=== PATIENT | male | born 1965 | race African-American/Black ===

== ENCOUNTER 2016-11-12 06:42 | Day surgery (SDC) | payer BC, OTHER ==
[2016-11-08 15:44] VITALS: BMI 37.6
[2016-11-12] MEDS ORDERED: LIDOCAINE HCL/PF 2% SDV 5ML VIAL ONE (07:38)
[2016-11-12] MEDS ORDERED: ROCURONIUM BROMIDE 50 MG/5 ML VIAL ONE ×2 (07:39→08:53)
[2016-11-12] MEDS ORDERED: PROPOFOL 20 ML ONE ×2 (07:39)
[2016-11-12] MEDS ORDERED: MIDAZOLAM HCL 2 MG/2 ML SINGLE DOSE VIAL ONE (07:39)
[2016-11-12] MEDS ORDERED: BUPIVACAINE HCL/PF 0.25% (2.5MG/ML) 10 ML VIAL ONE (07:54)
[2016-11-12] MEDS ORDERED: POLYMYXIN B SULFATE 500,000 UNIT VIAL TP ONE (08:15)
[2016-11-12] MEDS ORDERED: ceFAZolin SODIUM 1 GM VIAL IVPB ONE (08:24)
[2016-11-12] MEDS ORDERED: ceFAZolin SODIUM 1 GM VIAL ONE (08:29)
[2016-11-12] MEDS ORDERED: DEXAMETHASONE SOD PHOSPHATE 4 MG/1 ML VIAL ONE (08:29)
[2016-11-12] MEDS ORDERED: oxyCODONE HCL 5 MG TABLET PO PRN (09:16)
[2016-11-12] MEDS ORDERED: ONDANSETRON 4 MG/2 ML VIAL IVPUSH PRN (09:16)
[2016-11-12] MEDS ORDERED: HYDROmorphone HCL CARPU-JECT 1 MG/1 ML DISP.SYRIN IVPUSH PRN (09:16)
[2016-11-12] MEDS ORDERED: IBUPROFEN 800 MG/8 ML IJ IVPB PRN (09:16)
[2016-11-12] MEDS ORDERED: ACETAMINOPHEN 1000 MG/100 ML VIAL (NON FORMULARY) IVPB PRN (09:18)
[2016-11-12] MEDS ORDERED: NEOSTIGMINE METHYLSULFATE 0.5 MG/ML - 10 ML MDV ONE (09:27)
[2016-11-12] MEDS ORDERED: GLYCOPYRROLATE 0.2 MG/1 ML VIAL ONE (09:27)
[2016-11-12] MEDS ORDERED: LACTATED RINGERS SOLUTION 1,000 ML IV SCH (09:30)
[2016-11-12] MEDS ORDERED: PHENYLEPHRINE HCL 10 MG/1 ML SINGLE DOSE VIAL ONE (09:37)
[2016-11-12] MEDS ORDERED: BUPIVACAINE HCL/PF 0.25% (2.5MG/ML) 10 ML VIAL IJ ONE (10:20)
--- NOTE | 2016-11-12 10:39 | OP ---
Operative Note - Note: Operative Date: 11/12/16 Pre-Operative Diagnosis: Morbid obesity Operation: Laparoscopic gastric band placement Implants: AP standerd Lap Band Post-Operative Diagnosis: Same as Pre-op Surgeon: Jay Lu Child Care Attendant School: [employer] Anesthesia: General Specimens Removed: None Estimated Blood Loss (mls): 50 Operative Report Dictated: Yes
[2016-11-12] MEDS ORDERED: ONDANSETRON 4 MG/2 ML VIAL IVPB PRN (10:42)
[2016-11-12] MEDS ORDERED: HYDROmorphone HCL CARPU-JECT 1 MG/1 ML DISP.SYRIN IVPB PRN (10:42)
--- NOTE | 2016-11-12 10:42 | HP ---
[facility] - Chief Complaint Chief Complaint: Morbid Obesity History Source: Patient Limitations to Obtaining History: No Limitations - Past Medical History Allergies/Adverse Reactions: Allergies Allergy/AdvReac Type Severity Reaction Status Date / Time No Known Drug Allergies Allergy Verified 11/08/16 16:06 Cardiovascular: Yes: HTN Pulmonary: Yes: Sleep Apnea Endocrine: Yes: Diabetes Mellitus - Current Medications Current Medications: Home Medications Medication Instructions Recorded Canagliflozin [Invokana] 300 mg PO DAILY 11/08/16 Insulin (Novolog) [Novolog] 8 - 12 units SQ AC 11/08/16 Insulin Degludec [Tresiba 100 unit SQ HS 11/08/16 Flextouch U-100] Thurston-3 Fatty Acids [Fish Oil] 300 mg PO DAILY 11/08/16 Sitagliptin Phos/Metformin HCl 1 each PO BID 11/08/16 [Janumet 50-1,000 mg Tablet] Valsartan/Hydrochlorothiazide 1 each PO DAILY 11/08/16 [Valsartan-Hctz 160-12.5 mg Tab] Vitamin B Complex 1 each PO DAILY 11/08/16 Vitamin E (Dl,Tocopheryl Acet) 400 unit PO DAILY 11/08/16 [Vitamin E] Famotidine [Pepcid] 20 mg PO BID #60 tablet 11/12/16 Oxycodone HCl/Acetaminophen 1 - 2 tab PO Q6H #28 tab MDD 4 11/12/16 [Percocet 5-325 mg Tablet] [facility]ellite Physical Exam - Physical Examination Vital Signs: Vital Signs Period Temp Pulse Resp BP Sys/Lal Pulse Ox Last 24 Hr 97.8 F 84 20 164/80 97 General Appearance: Well Nourished Lung: Clear to auscultation Heart: Regular rate & rhythm Abdomen: Soft, Other (Obese) Neurological: Alert, Oriented [facility]ellite Impression/Plan - Impression/Plan Impression: Morbid obesity Operative Procedure: Laparoscopic Gastric Band Placement Possible Open Date to be Performed: 11/12/16
[2016-11-12] MEDS ORDERED: SODIUM CHLORIDE 1,000 ML IV SCH (10:45)
[2016-11-12] MEDS ORDERED: ACETAMINOPHEN INJECTION 100 ML IVPB ONE (11:24)
[2016-11-12 11:26] LABS: MCH 25.1 pg (25.7-33.7); MCHC 31.1 g/dl (32.0-35.9); MEAN CELL VOLUME 80.6 fl (80-96); MEAN PLT VOLUME 7.9 fl (7.5-11.1); PLATELET COUNT 226 K/MM3 (134-434); RDW 16.9 % (11.9-15.9); WHITE BLOOD COUNT 16.5 K/mm3 (4.0-10.0)
[2016-11-12] MEDS ORDERED: FAMOTIDINE 20 MG/50 ML IVPB 50 ML IVPB SCH (11:45)
[2016-11-12 11:47] LABS: CALCIUM 8.9 mg/dL (8.5-10.1); CREATININE 1.6 mg/dL (0.7-1.3)
[2016-11-12] MEDS ORDERED: FAMOTIDINE 20 MG PREMIXED IVPB IVPB ONE (12:00)
[2016-11-12] MEDS ORDERED: LACTATED RINGERS SOLUTION 1,000 ML IV STA (12:13)
[2016-11-12] MEDS ORDERED: ENOXAPARIN NA (PORCINE) 40 MG/0.4 ML DISP.SYRIN SQ ONE (13:45)
[2016-11-12 13:58] VITALS: TEMP 98.2
[2016-11-12] MEDS ORDERED: oxyCODONE HCL 5 MG TABLET ONE (15:56)
[2016-11-12 16:40] VITALS: BP 153/93; PULSE 90
--- NOTE | 2016-11-12 20:27 | SPEC ---
DATE OF OPERATION: 11/12/2016 SURGEON: Jay Lu MD MERCHANDISE FLOW MANAGER: Keo Howell MD PREOPERATIVE DIAGNOSIS: Morbid obesity, hypertension, diabetes mellitus, sleep apnea. POSTOPERATIVE DIAGNOSIS: Morbid obesity, hypertension, diabetes mellitus, sleep apnea. PROCEDURE: Laparoscopic gastric band placement. SPECIMEN: None. ESTIMATED BLOOD LOSS: 50 mL. DRAINS: None. ANESTHESIA: GET. BANDS: AP standard lap band. REASON FOR PROCEDURE: This is a 50-year-old gentleman who presented to the office for evaluation of morbid obesity. RISKS AND BENEFITS: After describing the different options for weight loss management, the patient decided to proceed with a laparoscopic, possible open, gastric band placement for gastric restriction. The patient was seen by the respective subspecialties and cleared for surgery. The risks and benefits of the procedure were explained. These included bleeding, infection, hernia, DE, DVT, PE, injury to surrounding structures including the liver, colon, bowel, spleen, esophagus, vessel injury, nerve injury, weight regain, obstruction, gastric band slip, gastric band erosion, port site slip, port site infection, vitamin deficiency, hair loss, and as some of the possible complications. The patient understood and signed informed consent. DESCRIPTION OF PROCEDURE: The patient was placed supine on the operating room table. The patient underwent general endotracheal intubation. The arms were brought out at 90 degrees and secured. A footboard was placed, and the legs were secured laterally with padding. The abdomen was prepped and draped in the usual sterile fashion. Time-out was performed. An incision was made in the left upper quadrant. A Veress needle was inserted. Pneumoperitoneum was established. Subsequently, the Veress needle was removed. A 12-mm trocar was then placed. Inspection of the abdominal cavity was performed with a laparoscopic camera. Subsequently, in the right upper quadrant to the right of midline, a 15-mm trocar was inserted. A 5-mm trocar was placed further laterally in the right upper quadrant and a 12-mm trocar placed below the left costal margin. A stab wound was made in the subxiphoid area, and a Pamela clamp inserted and removed to dilate the tract. A Lu liver retractor was then inserted. The post was secured at the bedside by the nursing staff. The patient was placed in steep reverse Trendelenburg position, and the Lu liver retractor was used to secure the liver towards the anterior abdominal wall. The fundus of the stomach was noted and grasped towards the patients right side and caudad. The overlying omentum was also retracted downward as well. Electrocautery was used to score the peritoneum over the left esophagogastric junction freeing this area until the left brenda of the diaphragm was noted. The stomach was then pulled laterally to the patients left side, and the caudate lobe of the liver was identified. The pars flaccida was identified and an opening created within it. The right brenda of the diaphragm was noted. The caudate lobe of the liver was retracted and the inferior vena cava was away from the field. The peritoneum anterior to the right brenda was scored with electrocautery, and a laparoscopic dissector was used to gently make a tunnel from the right to the left brenda until it was free in the left upper quadrant of the abdomen. The gastric band was then chosen and prepped by the surgical services manager. This was then placed within the abdominal cavity. The band tubing was placed into the laparoscopic dissector, which was pulled and withdrawn to the patients right side. The band tubing was placed within the band buckle and secured, securing the band around the stomach. The band was noted to be in good position and not too tight around the stomach. Hemostasis was noted. The band tubing was then brought out of the 15-mm trocar. The Lu liver retractor was removed under direct visualization. The pneumoperitoneum was desufflated, and all trocars were removed. The skin at the 15-mm trocar site was extended, and dissection continued until the anterior fascia was identified. Four 2-0 Prolene sutures were placed in the fascia. The end of the band tubing was cut and removed and sent off the field. The port was secured to the band tubing. The port was secured to the fascia using the four 2-0 Prolene sutures. Hemostasis was again noted. Antibiotic irrigation was placed within all incision sites and Marcaine was injected in all incision sites. A 3-0 Vicryl suture was used to close the deep subcutaneous tissue at this area. 4-0 Biosyn was used to close all incision sites. Sterile dressings were applied. The patient tolerated the procedure well and was transferred to the recovery room in stable condition. Isaura DOLL/[id number] MTDD
== END 2016-11-12 16:40 | disposition home or self-care (01) ==
LOC: JASU-SURG 06:42
PROVIDERS: ATTEND Surgery
PROC: 0DV64CZ Restriction of Stomach with Extraluminal Device, Percutaneous Endoscopic Approach (ICD-10-PCS; principal; 2016-11-12 08:00)
DX: E66.01 Morbid (severe) obesity due to excess calories (principal); Z68.37 Body mass index [BMI] 37.0-37.9, adult; I10 Essential (primary) hypertension; E11.9 Type 2 diabetes mellitus without complications; G47.30 Sleep apnea, unspecified
CPT/HCPCS: 36415; 74241-TC; 80048; 85027; 86850; 86900; 86901; 94010; 94760